=== PATIENT | female | born 1990 | race Caucasian/White ===

== ENCOUNTER 2016-11-01 09:34 | Emergency (ER) | payer OTHER ==
[~2016-11-01] VITALS: Ht 157.5 cm; Wt 77.5 kg
[~2016-11-01 09:34] MED LIST: CABE0.5T PO; CALC200T3 PO; CHOL200024 PO; DOCU240C31 PO; IBUP-1222 PO; OXYC-302 PO; OXYC5TAB3 PO; PREN1TAB14 PO
[2016-11-01] MEDS ORDERED: TAMSULOSIN 0.4 MG CAP.ER.24H PO ONE (11:30)
[2016-11-01] MEDS ORDERED: SODIUM CHLORIDE FLUSH 10ML SYR IVF ONE (11:30)
[2016-11-01] MEDS ORDERED: ONDANSETRON 2MG/ML, 2ML IVPush ONE (11:30)
[2016-11-01] MEDS ORDERED: KETOROLAC 30 MG/1 ML IVPush ONE (11:30)
[2016-11-01] MEDS ORDERED: SODIUM CHLORIDE 0.9% 1,000ML IV ONE (11:30)
[2016-11-01] MEDS ORDERED: TAMSULOSIN 0.4 MG CAP.ER.24H ONE (11:37)
[2016-11-01] MEDS ORDERED: ONDANSETRON 2MG/ML, 2ML ONE (11:37)
[2016-11-01] MEDS ORDERED: KETOROLAC 30 MG/1 ML ONE (11:37)
[2016-11-01 12:09] LABS: PATH.CAST-FLAG NOT PRESENT; SPERM-FLAG NOT PRESENT; SRC-FLAG NOT PRESENT; XTAL-FLAG NOT PRESENT; YLC-FLAG NOT PRESENT
[2016-11-01] MEDS ORDERED: MORPHINE SULFATE 4 MG/ML, 1ML ONE (12:16)
[2016-11-01 12:30] LABS: BLOOD UREA NITROGEN 11 mg/dL (7-18)
[2016-11-01] MEDS ORDERED: morphine SULFATE 10 MG/ML, 1ML IVPush ONE (12:30)
[2016-11-01 12:53] VITALS: BP 103/72
== END 2016-11-01 13:34 | disposition home or self-care (01) ==
LOC: ED 11:03
DX: N39.0 Urinary tract infection, site not specified (principal); R10.9 Unspecified abdominal pain; E07.9 Disorder of thyroid, unspecified
CPT/HCPCS: 36415; 74176; 80048; 81001; 82040; 83605; 85025; 87086; 96361; 96374; 96375; 99285; J1885; J2270; J2405; J7030

== ENCOUNTER → 2016-12-02 | Outpatient (CLI) | payer OTHER | END | disposition home or self-care (01) | LOC: CFH 15:09 | PROVIDERS: ATTEND Genetic Counselor, MS | DX: O26.891 Other specified pregnancy related conditions, first trimester (principal); N91.0 Primary amenorrhea; Z3A.01 Less than 8 weeks gestation of pregnancy | CPT/HCPCS: 76801 ==

== ENCOUNTER → 2017-05-03 | Outpatient (CLI) | payer OTHER | END | disposition home or self-care (01) | LOC: CFH 12:20 | PROVIDERS: ATTEND Genetic Counselor, MS | DX: R22.32 Localized swelling, mass and lump, left upper limb (principal) ==

== ENCOUNTER → 2018-04-20 | Outpatient (CLI) | payer OTHER | END | disposition home or self-care (01) | LOC: CFH 07:50 | PROVIDERS: ATTEND Nurse Practitioner Family | DX: N64.4 Mastodynia (principal); L50.9 Urticaria, unspecified | CPT/HCPCS: 76642 ==